=== PATIENT | male | born 1985 | race Two or more races ===

== ENCOUNTER 2020-04-20 14:40 | Outpatient (REF) | payer OTHER, SELFPAY ==
[2020-04-20 15:01] LABS: COVID-19 Test Negative (Negative)
== END 2020-04-20 14:41 | disposition home or self-care (01) ==
LOC: HO.LAB 14:40
PROVIDERS: Visit Provider Internal Medicine
DX: Z20.822 Contact with and (suspected) exposure to COVID-19 (principal)
CPT/HCPCS: 36415; 87635; C9803